=== PATIENT | female | born 1950 | race Caucasian/White ===

== ENCOUNTER 2022-01-26 10:33 | Emergency (ER) | payer MEDICARE, OTHER ==
[~2022-01-26 10:33] MED LIST: ELIQUIS5 MG PO; METOPROLOL TAR100 MG PO; OMEPRAZOLE 20MG20 MG PO; POTASSIUM CHLO10 ME1 PO; PREMARIN V45 GM/TUBE VG; PRILOSEC20 MG PO; SYNTHROID100 MCG PO; UROCIT-K10 MEQ PO
[2022-01-26] MEDS ORDERED: VIBRAMYCIN100 MG PO (11:08)
[2022-01-28 13:11] LABS: LYME TOTAL ANTIBODY EIA Negative (Negative)
== END 2022-01-26 12:02 | disposition home or self-care (01) ==
LOC: FER 10:33
PROVIDERS: Emergency Medicine
DX: S71.151A Open bite, right thigh, initial encounter (principal); A26.0 Cutaneous erysipeloid; K21.9 Gastro-esophageal reflux disease without esophagitis; Z88.0 Allergy status to penicillin; Z87.891 Personal history of nicotine dependence; Z79.899 Other long term (current) drug therapy; W57.XXXA Bitten or stung by nonvenomous insect and other nonvenomous arthropods, initial encounter
CPT/HCPCS: 86618; 99283